=== PATIENT | male | born 1940 | race African-American/Black ===

== ENCOUNTER 2023-06-22 18:38 | Emergency (ER) | payer OTHER ==
[~2023-06-22] VITALS: Ht 182.9 cm; Wt 113.0 kg
[~2023-06-22 18:38] MED LIST: HUM100IN SQ; LEVO-65 PO; SACU1TAB MT; TAMS-11 MT
[2023-06-22 18:41] VITALS: O2SAT 98
[2023-06-22 20:58] LABS: BASOPHILS % 0.7 % (0.0-2.0); HEMATOCRIT. 36.3 % (42.0-52.0); LYMPHOCYTES % 28.2 % (20.0-50.0); MEAN CORPUSCULAR HEMOGLOBIN 27.6 pg (28.0-32.0); MEAN CORPUSCULAR HGB CONC 33.1 g/dL (31.0-37.0); MEAN CORPUSCULAR VOLUME 83.3 fL (80.0-94.0); MONOCYTES % 5.9 % (2.0-8.0); NEUTROPHILS % 64.2 % (40.0-76.0); PLATELET 167 x1000/uL (130-400); RED BLOOD CELL COUNT 4.35 mill/uL (4.7-6.1); RED CELL DISTRIBUTION WIDTH 13.3 % (11.6-14.6)
[2023-06-22 21:11] LABS: ALANINE AMINOTRANSFERASE < 7 IU/L (10-49); ASPARTATE AMINOTRANSFERASE 11 IU/L (<34); BILIRUBIN TOTAL 0.6 mg/dL (0.1-1.0); CALCIUM 9.2 mg/dL (8.7-10.4); CARBON DIOXIDE 25 mEq/L (21-32); CHLORIDE 106 mEq/L (98-107); CREATININE 1.4 mg/dL (0.6-1.3); GLUCOSE 269 mg/dL (70-105); POTASSIUM 4.1 mEq/L (3.5-5.1); PROTEIN TOTAL 8.1 g/dL (6.0-8.3); SODIUM 141 mEq/L (136-145); UREA NITROGEN BLOOD 18 mg/dL (9-23)
[2023-06-22 22:10] LABS: CLARITY URINE CLOUDY (CLEAR); COLOR URINE YELLOW (YELLOW); GLUCOSE URINE TRACE (NEGATIVE); KETONES URINE NEGATIVE (NEGATIVE); LEUKOCYTE ESTERASE URINE 3+ (NEGATIVE); NITRITE URINE NEGATIVE (NEGATIVE); OCCULT BLOOD URINE 3+ (NEGATIVE); PH URINE 5.5 (4.5-8.0); PROTEIN URINE 1+ (NEGATIVE); SPECIFIC GRAVITY URINE 1.013 (1.005-1.030)
[2023-06-22 22:26] LABS: WBC URINE TNTC /hpf (0-2)
[2023-06-22 22:27] LABS: BACTERIA URINE 1+; RBC URINE 50-100 /hpf (0-2); SQUAMOUS EPITHELIAL CELL URINE 1+ /lpf (RARE/1+)
[2023-06-22] MEDS ORDERED: CEPH500C2 MT (22:39)
[2023-06-22] MEDS ORDERED: CEPHALEXIN 250MG CAPSULE PO ONE (22:45)
[2023-06-22 23:01] VITALS: BP 142/86; PULSE 98; RESP 16; TEMP 97.9
== END 2023-06-22 23:04 | disposition home or self-care (01) ==
LOC: ER 18:38
DX: N39.0 Urinary tract infection, site not specified (principal)
CPT/HCPCS: 36415; 76770; 80053; 81003; 85025; 99284

== ENCOUNTER 2025-04-11 01:23 | Inpatient (IN) | payer OTHER, MEDICARE ==
[~2025-04-11] VITALS: Ht 185.4 cm; Wt 141.5 kg
[~2025-04-11 01:23] MED LIST changes: +CEPH500C2 MT; -LEVO-65 PO; -TAMS-11 MT; +TAMS-54 MT
[2025-04-11 01:26] VITALS: O2SAT 96
[2025-04-11 02:08] LABS: BASOPHILS % 0.2 % (0.0-2.0); EOSINOPHILS % 3.2 % (0.0-5.0); HEMATOCRIT. 33.5 % (42.0-52.0); HEMOGLOBIN. 10.7 g/dL (14.0-18.0); LYMPHOCYTES % 25.2 % (20.0-50.0); MEAN PLATELET VOLUME 9.0 fl (7.4-10.4); MONOCYTES % 8.1 % (2.0-8.0); NEUTROPHILS % 63.3 % (40.0-76.0); PLATELET 186 x1000/uL (130-400); RED BLOOD CELL COUNT 4.02 mill/uL (4.7-6.1); RED CELL DISTRIBUTION WIDTH 13.4 % (11.6-14.6)
[2025-04-11 02:22] LABS: CREATININE 2.4 mg/dL (0.6-1.3); UREA NITROGEN BLOOD 37 mg/dL (9-23)
[2025-04-11 02:23] LABS: ASPARTATE AMINOTRANSFERASE 13 IU/L (<34); TROPONIN I HIGH SENSITIVITY 11 ng/L (3.0-53)
[2025-04-11 02:24] LABS: BILIRUBIN DIRECT 0.1 mg/dL (<=3.0); BILIRUBIN TOTAL 0.3 mg/dL (0.1-1.0); PROTEIN TOTAL 7.2 g/dL (6.0-8.3)
[2025-04-11] MEDS: HYDROCODONE/ACETAMINOPHEN 5/325MG TABLET PO NR (03:33)
[2025-04-11 04:37] LABS: CLARITY URINE CLOUDY (CLEAR); COLOR URINE YELLOW (YELLOW); GLUCOSE URINE NEGATIVE (NEGATIVE); KETONES URINE NEGATIVE (NEGATIVE); LEUKOCYTE ESTERASE URINE 3+ (NEGATIVE); NITRITE URINE NEGATIVE (NEGATIVE); OCCULT BLOOD URINE NEGATIVE (NEGATIVE); PH URINE 5.0 (4.5-8.0); PROTEIN URINE NEGATIVE (NEGATIVE); SPECIFIC GRAVITY URINE 1.012 (1.005-1.030); UROBILINOGEN URINE 0.2 E.U./dL (0.2-1.0)
[2025-04-11 04:47] LABS: *AMPHETAMINES SCREEN URINE NEGATIVE (NEGATIVE); *BARBITURATES SCREEN URINE NEGATIVE (NEGATIVE); *BENZODIAZEPINES SCREEN URINE NEGATIVE (NEGATIVE); *COCAINE SCREEN URINE NEGATIVE (NEGATIVE); METHADONE URINE SCREEN NEGATIVE (NEGATIVE); OPIATES URINE SCREEN NEGATIVE (NEGATIVE)
[2025-04-11 04:48] LABS: CANNABINOID URINE SCREEN NEGATIVE (NEGATIVE); ECSTASY MDMA SCREEN URINE NEGATIVE (NEGATIVE); PHENCYCLIDINE URINE SCREEN NEGATIVE (NEGATIVE)
[2025-04-11 04:58] LABS: SQUAMOUS EPITHELIAL CELL URINE 2+ /lpf (RARE/1+)
[2025-04-11 04:59] LABS: BACTERIA URINE TRACE
[2025-04-11 05:00] LABS: RBC URINE NONE SEEN /hpf (0-2); WBC URINE 50-100 /hpf (0-2)
[2025-04-11] MEDS: CEFTRIAXONE 2GM/50ML 50 ML IV NR (06:02)
[2025-04-11 10:40] VITALS: BP 134/69; PULSE 71; RESP 20; TEMP 35.8064
[2025-04-11] MEDS ORDERED: LOSA25TA26 PO (10:57)
[2025-04-11] MEDS ORDERED: ONDANSETRON HCL 4MG/2ML INJ IV PRN (11:15)
[2025-04-11] MEDS ORDERED: ACETAMINOPHEN 325MG TABLET PO PRN ×2 (11:15)
[2025-04-11] MEDS ORDERED: IPRATROPIUM/ALBUTEROL 0.5-3(2.5)MG/3ML NEB NEB PRN (11:15)
[2025-04-11] MEDS ORDERED: DEXTROSE 50% WATER 50ML SYRINGE IV PRN (11:30)
[2025-04-11 12:00] VITALS: BP 147/73; PULSE 74; RESP 20; TEMP 36.5; O2SAT 97
[2025-04-11] MEDS: BLOOD SUGAR DIAGNOSTIC STRIP TEST SCH (12:10)
[2025-04-11] MEDS: INSULIN LISPRO 100 UNITS/ML SUBCUT SCH (12:40)
[2025-04-11] MEDS ORDERED: NALOXONE HCL 0.4MG/ML VIAL IV PRN (13:15)
[2025-04-11] MEDS: LEVOFLOXACIN 750MG PREMIX 150 ML IV SCH (13:32)
[2025-04-11] MEDS: HYDROCODONE/ACETAMINOPHEN 5/325MG TABLET PO PRN (13:32)
[2025-04-11] MEDS: ENOXAPARIN 40MG/0.4ML SYR SUBCUT SCH (13:34)
[2025-04-11 16:00] VITALS: BP 141/72; PULSE 74; RESP 19; TEMP 36.6; O2SAT 98
[2025-04-11 16:15] LABS: HEPATITIS C AB REACTIVE (Pos) (Negative)
[2025-04-11 20:00] VITALS: BP 152/70; PULSE 81; RESP 19; TEMP 36.1; O2SAT 97
[2025-04-11] MEDS: SODIUM CHLORIDE 0.9% 1,000 ML IV SCH (20:39)
[2025-04-11] MEDS: SACUBITRIL/VALSARTAN 24MG/26MG TABLET PO SCH (20:39)
[2025-04-11] MEDS: ATORVASTATIN CALCIUM 40MG TABLET PO SCH (20:39)
[2025-04-11] MEDS: AMLODIPINE 2.5MG TABLET PO SCH (20:40)
[2025-04-12] VITALS: BP 120/63; PULSE 81; RESP 18; TEMP 36.2; O2SAT 98
[2025-04-12 08:00] VITALS: BP 131/71; PULSE 98; RESP 20; TEMP 36.6; O2SAT 98
[2025-04-12] MEDS: ASPIRIN 81MG TABLET PO SCH (08:56)
[2025-04-12] MEDS: TAMSULOSIN HCL 0.4MG SR CAPSULE PO SCH (08:58)
[2025-04-12 11:08] LABS: CREATININE 1.8 mg/dL (0.6-1.3)
[2025-04-12 11:09] LABS: UREA NITROGEN BLOOD 23.0 mg/dL (9-23)
[2025-04-12 12:00] VITALS: BP 162/66; PULSE 100; RESP 20; TEMP 36.5; O2SAT 100
[2025-04-12 16:00] VITALS: BP 144/79; PULSE 74; RESP 20; TEMP 36.6; O2SAT 97
[2025-04-12 20:00] VITALS: BP 166/87; PULSE 96; RESP 18; TEMP 36; O2SAT 95
[2025-04-12] MEDS: ZOLPIDEM TARTRATE 5MG TABLET PO PRN (20:52)
[2025-04-13] VITALS: BP 130/75; PULSE 110; RESP 22; TEMP 36; O2SAT 97
[2025-04-13] MEDS: LORAZEPAM 2MG/ML UD SYRINGE IV PRN (02:21)
[2025-04-13 04:00] VITALS: BP 125/72; PULSE 101; RESP 20; TEMP 36.9; O2SAT 97
[2025-04-13 08:00] VITALS: BP 165/62; PULSE 89; RESP 18; TEMP 36.6; O2SAT 97
[2025-04-13 12:00] VITALS: BP 159/81; PULSE 86; RESP 18; TEMP 36.5; O2SAT 96
[2025-04-13] MEDS ORDERED: LORAZEPAM 0.5MG TABLET PO PRN (13:15)
[2025-04-13 16:00] VITALS: BP 144/122; PULSE 91; RESP 18; TEMP 36.6; O2SAT 95
[2025-04-13 20:00] VITALS: BP 121/59; PULSE 100; RESP 20; TEMP 36.8; O2SAT 98
[2025-04-14] VITALS: BP 143/79; PULSE 101; RESP 18; TEMP 37; O2SAT 97
[2025-04-14 04:00] VITALS: BP 144/74; PULSE 99; RESP 20; TEMP 36.7; O2SAT 98
[2025-04-14 07:24] LABS: BASOPHILS % 0.4 % (0.0-2.0); EOSINOPHILS % 2.8 % (0.0-5.0); HEMATOCRIT. 33.6 % (42.0-52.0); HEMOGLOBIN. 10.9 g/dL (14.0-18.0); LYMPHOCYTES % 28.9 % (20.0-50.0); MEAN PLATELET VOLUME 9.4 fl (7.4-10.4); MONOCYTES % 8.0 % (2.0-8.0); NEUTROPHILS % 59.9 % (40.0-76.0); PLATELET 212 x1000/uL (130-400); RED BLOOD CELL COUNT 4.09 mill/uL (4.7-6.1); RED CELL DISTRIBUTION WIDTH 13.5 % (11.6-14.6)
[2025-04-14 07:29] LABS: CREATININE 1.2 mg/dL (0.6-1.3); UREA NITROGEN BLOOD 18 mg/dL (9-23)
[2025-04-14 08:00] VITALS: BP 149/82; PULSE 90; RESP 20; TEMP 36.5; O2SAT 100
[2025-04-14] MEDS ORDERED: BRIMONIDINE 0.2% OPHTH DROPS 10ML BOTHEYE SCH (09:00)
[2025-04-14 12:00] VITALS: BP 145/52; PULSE 91; RESP 19; TEMP 36.6; O2SAT 97
[2025-04-14 16:30] VITALS: BP 134/60; PULSE 96; RESP 20; TEMP 36.8; O2SAT 96
[2025-04-14 20:00] VITALS: BP 144/69; PULSE 91; RESP 18; TEMP 36.7; O2SAT 95
[2025-04-15] VITALS: BP 151/78; PULSE 95; RESP 17; RESP 18; TEMP 36.3; TEMP 36.8; O2SAT 93; O2SAT 95
[2025-04-15 04:00] VITALS: BP 138/60; PULSE 88; RESP 17; TEMP 36.8; O2SAT 92
[2025-04-15 08:00] VITALS: BP 138/81; PULSE 89; RESP 20; TEMP 36.8; O2SAT 98
[2025-04-15] MEDS: BRIMONIDINE 0.2% OPHTH DROPS 10ML BOTHEYE SCH (09:00)
[2025-04-15 12:00] VITALS: BP 128/66; PULSE 83; RESP 19; TEMP 36.7; O2SAT 96
[2025-04-15 16:00] VITALS: BP 116/65; PULSE 88; RESP 19; TEMP 36.7; O2SAT 97
[2025-04-15 20:00] VITALS: BP 144/55; PULSE 87; RESP 19; TEMP 36.3; O2SAT 97
[2025-04-16] VITALS: BP 146/62; PULSE 85; RESP 19; TEMP 36.3; O2SAT 98
[2025-04-16 04:00] VITALS: BP 149/65; PULSE 79; RESP 19; TEMP 36.4; O2SAT 98
[2025-04-16 08:00] VITALS: BP 151/73; PULSE 88; RESP 19; TEMP 37.1; O2SAT 100
[2025-04-16 12:00] VITALS: BP 143/75; PULSE 78; RESP 18; TEMP 35.8; O2SAT 95
[2025-04-16 16:00] VITALS: BP 155/80; PULSE 84; RESP 19; TEMP 36.7; O2SAT 95
[2025-04-16] MEDS ORDERED: FAMOTIDINE 20MG/2ML VIAL IV SCH (18:15)
[2025-04-16] MEDS: FAMOTIDINE 20MG TABLET PO SCH (18:20)
[2025-04-16 20:00] VITALS: BP 138/70; PULSE 86; RESP 20; TEMP 36.3; O2SAT 96
[2025-04-17] VITALS: BP 121/85; PULSE 88; RESP 20; TEMP 36.4; O2SAT 95
[2025-04-17 04:00] VITALS: BP 159/77; PULSE 90; RESP 20; TEMP 36.4; O2SAT 96
[2025-04-17 08:00] VITALS: BP 104/61; PULSE 74; RESP 20; TEMP 36.6; O2SAT 98
[2025-04-17 12:00] VITALS: BP 168/74; PULSE 83; RESP 19; TEMP 36.4; O2SAT 98
[2025-04-17 16:00] VITALS: BP 151/78; PULSE 76; RESP 18; TEMP 36.4; O2SAT 100
[2025-04-17 20:00] VITALS: BP 148/63; PULSE 80; RESP 20; TEMP 35.9; O2SAT 95
[2025-04-18] VITALS: BP 160/67; PULSE 84; RESP 20; TEMP 36.2; O2SAT 97
[2025-04-18 04:00] VITALS: BP 154/61; PULSE 83; RESP 20; TEMP 35.8; O2SAT 96
[2025-04-18 08:00] VITALS: BP 148/80; PULSE 82; RESP 18; TEMP 36.2; O2SAT 98
[2025-04-18 12:00] VITALS: BP 149/74; PULSE 80; RESP 18; TEMP 36.3; O2SAT 98
[2025-04-18 16:00] VITALS: BP 127/60; PULSE 83; RESP 18; TEMP 36.3; O2SAT 100
[2025-04-18 17:49] VITALS: BP 127/60; PULSE 83; RESP 18; TEMP 97.4
== END 2025-04-18 19:55 | DRG 689 ==
LOC: ER 01:23 → 8WST 04:53 → EDBEDREQTM 04:58 → EDBEDREQ 04:58 → ENRESERV 05:29 → 6EST 04-15 06:50
PROVIDERS: ADMIT Internal Medicine; ATTEND Internal Medicine
DX: N39.0 Urinary tract infection, site not specified (principal); N17.0 Acute kidney failure with tubular necrosis; E11.621 Type 2 diabetes mellitus with foot ulcer; N18.9 Chronic kidney disease, unspecified; I12.9 Hypertensive chronic kidney disease with stage 1 through stage 4 chronic kidney disease, or unspecified chronic kidney disease; L97.419 Non-pressure chronic ulcer of right heel and midfoot with unspecified severity; M19.90 Unspecified osteoarthritis, unspecified site; E11.22 Type 2 diabetes mellitus with diabetic chronic kidney disease; E11.628 Type 2 diabetes mellitus with other skin complications; E78.00 Pure hypercholesterolemia, unspecified; Z79.899 Other long term (current) drug therapy
CPT/HCPCS: 36415; 71045; 76770; 80048; 80076; 80305; 80320; 81003; 82962; 83036; 83735; 83880; 84484; 85025; 86705; 86850; 86900; 87340; 93005; 97162; 97166; 97535; 99285; A4606; A6449; J0696; J1308; J1650; J1815; J1956; J2060; J7030; G0480